=== PATIENT | male | born 1935 | race Two or more races ===

== ENCOUNTER 2016-04-02 02:25 | Inpatient (IN) | payer MEDICARE, OTHER ==
[~2016-04-02] VITALS: Ht 175.3 cm; Wt 78.0 kg
[2016-04-02] MEDS ORDERED: ONDANSETRON HCL/PF 4 MG/2 ML VIAL IVP PRN (05:00)
[2016-04-02] MEDS ORDERED: ONDANSETRON HCL/PF 4 MG/2 ML VIAL ONE (05:49)
[2016-04-02 06:10] VITALS: BP 190/84
[2016-04-02 08:00] VITALS: BP 178/84
[2016-04-02 08:25] LABS: DIFF TOTAL % 100 %; EOSINOPHILS % (AUTO) 0.1 % (0.0-6.0); HEMATOCRIT 30 % (39-51); HEMOGLOBIN 9.7 g/dL (13.5-17.5); LYMPHOCYTES # (AUTO) 0.5 /CMM (0.8-4.8); LYMPHOCYTES % (AUTO) 4.4 % (20.0-44.0); MEAN CORPUSCULAR HEMOGLOBIN 27 PG (26.0-33.0); MEAN CORPUSCULAR HGB CONC 32 g/dl (31.0-36.0); MEAN CORPUSCULAR VOLUME 84 fL (80-96); MONOCYTES # (AUTO) 0.8 /CMM (0.1-1.30); NEUTROPHILS # (AUTO) 9.8 /CMM (1.8-8.9); NEUTROPHILS % (AUTO) 88.5 % (43.0-81.0); PLATELET COUNT (AUTO) 197 /CMM (150-450); RED BLOOD CELL COUNT(AUTO) 3.63 MIL/uL (4.5-6.0); WHITE BLOOD COUNT (AUTO) 11.1 K/uL (4.3-11.0)
[2016-04-02] MEDS ORDERED: HYDRALAZINE HCL PO (08:43)
[2016-04-02] MEDS ORDERED: IBUP-23 PO (08:43)
[2016-04-02] MEDS ORDERED: ASPI81TA2 PO (08:43)
[2016-04-02] MEDS ORDERED: DILT120T14 PO (08:43)
[2016-04-02] MEDS: ASPIRIN 81 MG TAB.CHEW PO SCH (08:48)
[2016-04-02] MEDS: hydrALAZINE HCL 50 MG TABLET PO SCH ×3 (08:48→16:45)
[2016-04-02] MEDS: PANTOPRAZOLE 40 MG TABLET.DR PO SCH (08:48)
[2016-04-02] MEDS: ATORVASTATIN 10 MG TABLET PO SCH (08:48)
[2016-04-02 08:56] LABS: POTASSIUM 5.5 mmol/L (3.5-5.1)
[2016-04-02 08:58] LABS: BILIRUBIN,TOTAL 0.4 mg/dL (0.2-1.0); PHOSPHORUS 5.3 mg/dL (2.5-4.9)
[2016-04-02 08:59] LABS: ALBUMIN 3.6 g/dL (3.4-5.0); TOTAL PROTEIN, SERUM 0.4 g/dL (6.4-8.2)
[2016-04-02 09:03] LABS: CALCIUM, SERUM 8.8 mg/dL (8.5-10.1)
[2016-04-02] MEDS: NITROGLYCERIN 30 GM TUBE TP SCH ×2 (10:14→20:47)
[2016-04-02 11:30] LABS: KETONES,URINE NEGATIVE (NEGATIVE); LEUKOCYTE ESTERASE ,URINE 1+ (NEGATIVE); PH,URINE 5.5 (5.0-8.0)
[2016-04-02 11:33] LABS: ADD UA MICROSCOPIC YES
[2016-04-02 11:49] LABS: RBC,URINE 51-80 /HPF (0-2)
[2016-04-02 11:50] LABS: ADD URINE CULTURE YES; WBC,URINE 21-50 /HPF (0-3)
[2016-04-02 11:51] LABS: MUCUS,URINE Few /LPF (None Seen)
[2016-04-02 12:00] VITALS: BP 158/69
[2016-04-02] MEDS: HEPARIN SODIUM, PORCINE 5000 UNITS/1 ML VIAL SQ SCH ×2 (12:00→21:27)
[2016-04-02 14:39] LABS: CREATININE, URINE 58.6 MG/DL (30.0-125.0); URINE TOTAL PROTEIN 271.2 mg/dL (0-11.9)
[2016-04-02 16:00] VITALS: BP 145/73
[2016-04-02] MEDS ORDERED: SODIUM POLYSTYRENE SULFONATE 15 G/60 ML BOTTLE PO ONE (18:00)
[2016-04-02] MEDS ORDERED: FUROSEMIDE 40 MG/4 ML VIAL IV SCH (18:00)
[2016-04-02 20:00] VITALS: BP 158/73
[2016-04-02] MEDS ORDERED: SECONDARY IV SET 1 EA INFUS.SET MC ONE (20:33)
[2016-04-02] MEDS ORDERED: IV SET PRIMARY PUMP SET 1 EA INFUS.SET MC ONE (20:33)
[2016-04-02] MEDS ORDERED: IV NS 0.9% 250 ML IV ONE (20:33)
[2016-04-02] MEDS: CEFTRIAXONE 1 G in IV D5W 50 ML IV SCH (20:37)
[2016-04-03] VITALS (7 sets, daily range): BP systolic 128–173; BP diastolic 60–91
[2016-04-03 07:22] LABS: BASOPHILS % (AUTO) 0.6 % (0.0-2.0); DIFF TOTAL % 100 %; EOSINOPHILS % (AUTO) 0.2 % (0.0-6.0); HEMATOCRIT 28 % (39-51); HEMOGLOBIN 9.1 g/dL (13.5-17.5); LYMPHOCYTES # (AUTO) 0.9 /CMM (0.8-4.8); LYMPHOCYTES % (AUTO) 11.1 % (20.0-44.0); MEAN CORPUSCULAR HEMOGLOBIN 28 PG (26.0-33.0); MEAN CORPUSCULAR HGB CONC 33 g/dl (31.0-36.0); MEAN CORPUSCULAR VOLUME 84 fL (80-96); MONOCYTES # (AUTO) 0.8 /CMM (0.1-1.30); MONOCYTES % (AUTO) 10.1 % (2.0-12.0); NEUTROPHILS # (AUTO) 6.3 /CMM (1.8-8.9); PLATELET COUNT (AUTO) 200 /CMM (150-450); RED BLOOD CELL COUNT(AUTO) 3.32 MIL/uL (4.5-6.0)
[2016-04-03 07:45] LABS: KETONES,URINE NEGATIVE (NEGATIVE); LEUKOCYTE ESTERASE ,URINE 2+ (NEGATIVE); PH,URINE 5.5 (5.0-8.0)
[2016-04-03 07:47] LABS: ADD UA MICROSCOPIC YES
[2016-04-03 07:51] LABS: THYROID STIMULATING HORMONE 1.805 uIU/mL (0.358-3.74)
[2016-04-03 07:55] LABS: ALBUMIN 3.1 g/dL (3.4-5.0); BILIRUBIN,TOTAL 0.4 mg/dL (0.2-1.0); CALCIUM, SERUM 8.5 mg/dL (8.5-10.1); CREATININE 6.4 mg/dL (0.6-1.3); PHOSPHORUS 5.3 mg/dL (2.5-4.9); POTASSIUM 5.5 mmol/L (3.5-5.1); TOTAL PROTEIN, SERUM 6.7 g/dL (6.4-8.2)
[2016-04-03 07:57] LABS: ADD URINE CULTURE YES; MUCUS,URINE Few /LPF (None Seen); RBC,URINE 81-100 /HPF (0-2)
[2016-04-03 07:58] LABS: COARSE GRANULAR CASTS,URINE Rare /LPF (None Seen)
[2016-04-03 08:04] LABS: CREATININE, URINE 35.9 MG/DL (30.0-125.0); URINE TOTAL PROTEIN 136.2 mg/dL (0-11.9)
[2016-04-03] MEDS: PANTOPRAZOLE 40 MG TABLET.DR PO SCH (08:43)
[2016-04-03] MEDS: DILTIAZEM HCL 30 MG TABLET PO SCH (08:43)
[2016-04-03] MEDS: ASPIRIN 81 MG TAB.CHEW PO SCH (08:44)
[2016-04-03] MEDS: HEPARIN SODIUM, PORCINE 5000 UNITS/1 ML VIAL SQ SCH ×2 (08:45→21:00)
[2016-04-03] MEDS: hydrALAZINE HCL 50 MG TABLET PO SCH ×3 (08:46→16:50)
[2016-04-03] MEDS: ATORVASTATIN 10 MG TABLET PO SCH (08:46)
[2016-04-03] MEDS ORDERED: ASPIRIN 81 MG TAB.CHEW PO SCH (09:00)
[2016-04-03] MEDS: NITROGLYCERIN 30 GM TUBE TP SCH ×2 (09:39→21:24)
[2016-04-03 09:42] LABS: IRON, SERUM 26 ug/dl (50-175); PERCENT SATURATION 10 % (14-33); TOTAL IRON BINDING CAPACITY 273 ug/dl (250-450)
[2016-04-03] MEDS ORDERED: SODIUM POLYSTYRENE SULFONATE 15 G/60 ML BOTTLE PO ONE (16:00)
[2016-04-03] MEDS: ACETAMINOPHEN 325 MG TABLET PO PRN (16:50)
[2016-04-03 19:38] LABS: INR 1.26 (0.87-1.13); PROTHROMBIN TIME 13.6 SECS (9.5-12.7)
[2016-04-03] MEDS: CEFTRIAXONE 1 G in IV D5W 50 ML IV SCH (20:14)
[2016-04-04 06:34] LABS: BASOPHILS % (AUTO) 0.3 % (0.0-2.0); DIFF TOTAL % 100 %; EOSINOPHILS % (AUTO) 0.3 % (0.0-6.0); HEMATOCRIT 27 % (39-51); HEMOGLOBIN 8.7 g/dL (13.5-17.5); LYMPHOCYTES # (AUTO) 0.8 /CMM (0.8-4.8); LYMPHOCYTES % (AUTO) 10.2 % (20.0-44.0); MEAN CORPUSCULAR HEMOGLOBIN 27 PG (26.0-33.0); MEAN CORPUSCULAR HGB CONC 33 g/dl (31.0-36.0); MEAN CORPUSCULAR VOLUME 83 fL (80-96); MONOCYTES % (AUTO) 12.7 % (2.0-12.0); NEUTROPHILS # (AUTO) 6.1 /CMM (1.8-8.9); NEUTROPHILS % (AUTO) 76.5 % (43.0-81.0); PLATELET COUNT (AUTO) 184 /CMM (150-450); RED BLOOD CELL COUNT(AUTO) 3.21 MIL/uL (4.5-6.0)
[2016-04-04 06:50] LABS: INR 1.3 (0.87-1.13); PROTHROMBIN TIME 14.1 SECS (9.5-12.7)
[2016-04-04 07:02] LABS: CALCIUM, SERUM 8.4 mg/dL (8.5-10.1); CREATININE 6.8 mg/dL (0.6-1.3); POTASSIUM 4.8 mmol/L (3.5-5.1)
[2016-04-04 08:00] VITALS: BP 162/82
[2016-04-04 08:17] LABS: VIT D, 25-HYDROXY 19.3 ng/mL (30.0-100.0)
[2016-04-04] MEDS: ATORVASTATIN 10 MG TABLET PO SCH (08:57)
[2016-04-04] MEDS: HEPARIN SODIUM, PORCINE 5000 UNITS/1 ML VIAL SQ SCH ×2 (08:58→22:52)
[2016-04-04] MEDS: PANTOPRAZOLE 40 MG TABLET.DR PO SCH (08:58)
[2016-04-04] MEDS: ASPIRIN 81 MG TAB.CHEW PO SCH (08:59)
[2016-04-04] MEDS: DILTIAZEM HCL 30 MG TABLET PO SCH (09:24)
[2016-04-04] MEDS: hydrALAZINE HCL 50 MG TABLET PO SCH ×3 (09:25→16:39)
[2016-04-04] MEDS: NITROGLYCERIN 30 GM TUBE TP SCH ×2 (09:26→22:50)
[2016-04-04 10:39] LABS: *SPE ALBUMIN 3.2 g/dL (2.9-4.4)
[2016-04-04 13:17] LABS: PTH, INTACT 193 pg/mL (15-65)
[2016-04-04] MEDS ORDERED: HEPARIN SODIUM, PORCINE 1,000 UNIT/ML VIAL ONE (14:28)
[2016-04-04] MEDS ORDERED: LIDOCAINE HCL/PF 1% 30 ML SDV ONE (14:28)
[2016-04-04] MEDS ORDERED: ANESTHESIA TRAY IN PYXIS 1 EA TRAY MC ONE (15:59)
[2016-04-04 16:00] VITALS: BP 152/78
[2016-04-04] MEDS ORDERED: SECONDARY IV SET 1 EA INFUS.SET MC ONE (16:26)
[2016-04-04 16:30] VITALS: BP 150/56
[2016-04-04] MEDS: SOD FERRIC GLUC 125 MG in IV NS 0.9% 100 ML IV SCH ×2 (16:30→16:38)
[2016-04-04 20:00] VITALS: BP 156/72
[2016-04-04 22:00] VITALS: BP 156/72
[2016-04-04] MEDS: CEFTRIAXONE 1 G in IV D5W 50 ML IV SCH (22:31)
[2016-04-04] MEDS ORDERED: IV SET PRIMARY PUMP SET 1 EA INFUS.SET MC ONE (22:33)
[2016-04-05 08:00] VITALS: BP 155/90
[2016-04-05] MEDS: hydrALAZINE HCL 50 MG TABLET PO SCH ×4 (09:00→18:23)
[2016-04-05 09:34] LABS: BASOPHILS % (AUTO) 0.2 % (0.0-2.0); DIFF TOTAL % 100 %; EOSINOPHILS % (AUTO) 0.1 % (0.0-6.0); HEMATOCRIT 27 % (39-51); HEMOGLOBIN 8.7 g/dL (13.5-17.5); LYMPHOCYTES # (AUTO) 0.4 /CMM (0.8-4.8); LYMPHOCYTES % (AUTO) 4.3 % (20.0-44.0); MEAN CORPUSCULAR HEMOGLOBIN 27 PG (26.0-33.0); MEAN CORPUSCULAR HGB CONC 32 g/dl (31.0-36.0); MEAN CORPUSCULAR VOLUME 83 fL (80-96); MONOCYTES # (AUTO) 1.1 /CMM (0.1-1.30); MONOCYTES % (AUTO) 11.2 % (2.0-12.0); NEUTROPHILS # (AUTO) 8.6 /CMM (1.8-8.9); NEUTROPHILS % (AUTO) 84.2 % (43.0-81.0); PLATELET COUNT (AUTO) 188 /CMM (150-450); RED BLOOD CELL COUNT(AUTO) 3.24 MIL/uL (4.5-6.0); WHITE BLOOD COUNT (AUTO) 10.2 K/uL (4.3-11.0)
[2016-04-05 09:41] LABS: ALBUMIN 2.9 g/dL (3.4-5.0); BILIRUBIN,TOTAL 0.4 mg/dL (0.2-1.0); CREATININE 5.7 mg/dL (0.6-1.3); PHOSPHORUS 4.7 mg/dL (2.5-4.9); POTASSIUM 4.4 mmol/L (3.5-5.1); TOTAL PROTEIN, SERUM 6.6 g/dL (6.4-8.2)
[2016-04-05] MEDS: ASPIRIN 81 MG TAB.CHEW PO SCH (09:55)
[2016-04-05] MEDS: ATORVASTATIN 10 MG TABLET PO SCH (09:55)
[2016-04-05] MEDS: PANTOPRAZOLE 40 MG TABLET.DR PO SCH (09:55)
[2016-04-05] MEDS: NITROGLYCERIN 30 GM TUBE TP SCH ×3 (10:00→21:00)
[2016-04-05] MEDS: HEPARIN SODIUM, PORCINE 5000 UNITS/1 ML VIAL SQ SCH ×2 (10:01→20:53)
[2016-04-05] MEDS: ACETAMINOPHEN 325 MG TABLET PO PRN (10:30)
[2016-04-05 16:00] VITALS: BP 152/69
[2016-04-05] MEDS: VIT B CMPLX 3/FA/VIT C/BIOTIN 1 TAB TABLET PO SCH (17:05)
[2016-04-05] MEDS: DILTIAZEM HCL 30 MG TABLET PO SCH (17:06)
[2016-04-05] MEDS: SOD FERRIC GLUC 125 MG in IV NS 0.9% 100 ML IV SCH (17:15)
[2016-04-05] MEDS ORDERED: SECONDARY IV SET 1 EA INFUS.SET MC ONE ×2 (17:16→20:24)
[2016-04-05 20:00] VITALS: BP 125/60
[2016-04-05] MEDS: CEFTRIAXONE 1 G in IV D5W 50 ML IV SCH (20:28)
[2016-04-05 21:42] VITALS: BP 125/60
[2016-04-06 06:47] LABS: BASOPHILS % (AUTO) 0.5 % (0.0-2.0); DIFF TOTAL % 100 %; EOSINOPHILS # (AUTO) 0.1 /CMM (0.0-0.7); EOSINOPHILS % (AUTO) 0.8 % (0.0-6.0); HEMATOCRIT 24 % (39-51); HEMOGLOBIN 7.9 g/dL (13.5-17.5); LYMPHOCYTES # (AUTO) 0.7 /CMM (0.8-4.8); LYMPHOCYTES % (AUTO) 9.7 % (20.0-44.0); MEAN CORPUSCULAR HEMOGLOBIN 27 PG (26.0-33.0); MEAN CORPUSCULAR HGB CONC 33 g/dl (31.0-36.0); MEAN CORPUSCULAR VOLUME 82 fL (80-96); MONOCYTES % (AUTO) 13.9 % (2.0-12.0); NEUTROPHILS # (AUTO) 5.5 /CMM (1.8-8.9); NEUTROPHILS % (AUTO) 75.1 % (43.0-81.0); PLATELET COUNT (AUTO) 161 /CMM (150-450); RED BLOOD CELL COUNT(AUTO) 2.92 MIL/uL (4.5-6.0); WHITE BLOOD COUNT (AUTO) 7.3 K/uL (4.3-11.0)
[2016-04-06 07:03] LABS: CALCIUM, SERUM 7.9 mg/dL (8.5-10.1); CREATININE 4.1 mg/dL (0.6-1.3); PHOSPHORUS 3.8 mg/dL (2.5-4.9)
[2016-04-06 08:00] VITALS: BP 150/65
[2016-04-06] MEDS: ASPIRIN 81 MG TAB.CHEW PO SCH (09:35)
[2016-04-06] MEDS: ATORVASTATIN 10 MG TABLET PO SCH (09:35)
[2016-04-06] MEDS: hydrALAZINE HCL 50 MG TABLET PO SCH ×3 (09:35→17:00)
[2016-04-06] MEDS: VIT B CMPLX 3/FA/VIT C/BIOTIN 1 TAB TABLET PO SCH (09:35)
[2016-04-06] MEDS: PANTOPRAZOLE 40 MG TABLET.DR PO SCH (09:35)
[2016-04-06] MEDS: DILTIAZEM HCL 30 MG TABLET PO SCH (09:36)
[2016-04-06] MEDS: NITROGLYCERIN 30 GM TUBE TP SCH ×2 (09:39→20:25)
[2016-04-06] MEDS: HEPARIN SODIUM, PORCINE 5000 UNITS/1 ML VIAL SQ SCH ×2 (09:46→20:25)
[2016-04-06] MEDS ORDERED: Magnesium 1GM/D5W 100ML PREMIX 100 ML IV SCH (11:00)
[2016-04-06] MEDS ORDERED: SECONDARY IV SET 1 EA INFUS.SET MC ONE ×2 (11:10→14:48)
[2016-04-06] MEDS: SOD FERRIC GLUC 125 MG in IV NS 0.9% 100 ML IV SCH (14:52)
[2016-04-06 17:00] VITALS: BP 134/71
[2016-04-06 20:00] VITALS: BP 154/76
[2016-04-06] MEDS: CEFTRIAXONE 1 G in IV D5W 50 ML IV SCH (20:25)
[2016-04-07 07:17] LABS: BASOPHILS # (AUTO) 0.1 /CMM (0.0-0.2); BASOPHILS % (AUTO) 0.8 % (0.0-2.0); DIFF TOTAL % 100 %; EOSINOPHILS % (AUTO) 0.4 % (0.0-6.0); HEMATOCRIT 25 % (39-51); HEMOGLOBIN 8.1 g/dL (13.5-17.5); LYMPHOCYTES # (AUTO) 0.7 /CMM (0.8-4.8); LYMPHOCYTES % (AUTO) 10.3 % (20.0-44.0); MEAN CORPUSCULAR HEMOGLOBIN 27 PG (26.0-33.0); MEAN CORPUSCULAR HGB CONC 33 g/dl (31.0-36.0); MEAN CORPUSCULAR VOLUME 83 fL (80-96); MONOCYTES # (AUTO) 0.9 /CMM (0.1-1.30); MONOCYTES % (AUTO) 12.9 % (2.0-12.0); NEUTROPHILS # (AUTO) 5.5 /CMM (1.8-8.9); NEUTROPHILS % (AUTO) 75.6 % (43.0-81.0); PLATELET COUNT (AUTO) 167 /CMM (150-450); RED BLOOD CELL COUNT(AUTO) 2.99 MIL/uL (4.5-6.0); WHITE BLOOD COUNT (AUTO) 7.3 K/uL (4.3-11.0)
[2016-04-07 07:22] LABS: CALCIUM, SERUM 8.1 mg/dL (8.5-10.1); CREATININE 4.7 mg/dL (0.6-1.3); PHOSPHORUS 4.7 mg/dL (2.5-4.9); POTASSIUM 3.9 mmol/L (3.5-5.1)
[2016-04-07 08:00] VITALS: BP 147/72
[2016-04-07] MEDS: DILTIAZEM HCL 30 MG TABLET PO SCH (08:51)
[2016-04-07] MEDS: PANTOPRAZOLE 40 MG TABLET.DR PO SCH (08:52)
[2016-04-07] MEDS: VIT B CMPLX 3/FA/VIT C/BIOTIN 1 TAB TABLET PO SCH (08:52)
[2016-04-07] MEDS: hydrALAZINE HCL 50 MG TABLET PO SCH ×3 (08:52→17:00)
[2016-04-07] MEDS: ATORVASTATIN 10 MG TABLET PO SCH (08:52)
[2016-04-07] MEDS: ASPIRIN 81 MG TAB.CHEW PO SCH (08:52)
[2016-04-07] MEDS: NITROGLYCERIN 30 GM TUBE TP SCH ×2 (08:53→20:37)
[2016-04-07] MEDS: HEPARIN SODIUM, PORCINE 5000 UNITS/1 ML VIAL SQ SCH ×2 (09:00→20:37)
[2016-04-07] MEDS ORDERED: EPOETIN ALFA (10,000 UNIT) 10,000 UNIT/ML VIAL SQ ONE (10:30)
[2016-04-07] MEDS: SOD FERRIC GLUC 125 MG in IV NS 0.9% 100 ML IV SCH (15:40)
[2016-04-07 16:00] VITALS: BP 116/62
[2016-04-07 20:00] VITALS: BP 130/69
[2016-04-07] MEDS: CEFTRIAXONE 1 G in IV D5W 50 ML IV SCH (20:24)
[2016-04-08 05:12] LABS: HEPATITIS C VIRUS AB <0.1 s/co ratio (0.0-0.9)
[2016-04-08 08:00] VITALS: BP 145/61
[2016-04-08] MEDS: ATORVASTATIN 10 MG TABLET PO SCH (08:31)
[2016-04-08] MEDS: hydrALAZINE HCL 50 MG TABLET PO SCH ×3 (08:32→16:38)
[2016-04-08] MEDS: PANTOPRAZOLE 40 MG TABLET.DR PO SCH (08:32)
[2016-04-08] MEDS: ASPIRIN 81 MG TAB.CHEW PO SCH (08:33)
[2016-04-08] MEDS: DILTIAZEM HCL 30 MG TABLET PO SCH (08:33)
[2016-04-08] MEDS: VIT B CMPLX 3/FA/VIT C/BIOTIN 1 TAB TABLET PO SCH (08:33)
[2016-04-08] MEDS: HEPARIN SODIUM, PORCINE 5000 UNITS/1 ML VIAL SQ SCH ×2 (08:36→20:24)
[2016-04-08] MEDS: NITROGLYCERIN 30 GM TUBE TP SCH ×2 (08:36→20:24)
[2016-04-08] MEDS ORDERED: Hydralazine Hcl PO (10:54)
[2016-04-08] MEDS ORDERED: FERR-58 PO (10:54)
[2016-04-08] MEDS ORDERED: VIT1TABL44 PO (10:54)
[2016-04-08] MEDS: SOD FERRIC GLUC 125 MG in IV NS 0.9% 100 ML IV SCH (13:31)
[2016-04-08 16:00] VITALS: BP 148/69
[2016-04-08 19:55] VITALS: BP 166/70
[2016-04-08] MEDS: CEFTRIAXONE 1 G in IV D5W 50 ML IV SCH (20:21)
[2016-04-08 22:00] VITALS: BP 166/70
[2016-04-09 08:00] VITALS: BP 185/89
[2016-04-09] MEDS: NITROGLYCERIN 30 GM TUBE TP SCH ×2 (09:00→20:08)
[2016-04-09] MEDS: VIT B CMPLX 3/FA/VIT C/BIOTIN 1 TAB TABLET PO SCH (09:00)
[2016-04-09] MEDS: DILTIAZEM HCL 30 MG TABLET PO SCH (09:00)
[2016-04-09] MEDS: PANTOPRAZOLE 40 MG TABLET.DR PO SCH (09:00)
[2016-04-09] MEDS: ATORVASTATIN 10 MG TABLET PO SCH (09:00)
[2016-04-09] MEDS: ASPIRIN 81 MG TAB.CHEW PO SCH (09:00)
[2016-04-09] MEDS: HEPARIN SODIUM, PORCINE 5000 UNITS/1 ML VIAL SQ SCH (09:00)
[2016-04-09] MEDS: hydrALAZINE HCL 50 MG TABLET PO SCH ×3 (09:00→17:19)
[2016-04-09 12:57] LABS: CALCIUM, SERUM 8.7 mg/dL (8.5-10.1); CREATININE 4.7 mg/dL (0.6-1.3)
[2016-04-09 13:48] LABS: BASOPHILS % (AUTO) 0.4 % (0.0-2.0); DIFF TOTAL % 100 %; EOSINOPHILS # (AUTO) 0.2 /CMM (0.0-0.7); HEMATOCRIT 29 % (39-51); HEMOGLOBIN 9.4 g/dL (13.5-17.5); LYMPHOCYTES # (AUTO) 0.9 /CMM (0.8-4.8); LYMPHOCYTES % (AUTO) 9.9 % (20.0-44.0); MEAN CORPUSCULAR HEMOGLOBIN 27 PG (26.0-33.0); MEAN CORPUSCULAR HGB CONC 33 g/dl (31.0-36.0); MEAN CORPUSCULAR VOLUME 82 fL (80-96); MONOCYTES # (AUTO) 1.2 /CMM (0.1-1.30); MONOCYTES % (AUTO) 13.4 % (2.0-12.0); NEUTROPHILS # (AUTO) 6.7 /CMM (1.8-8.9); NEUTROPHILS % (AUTO) 74.3 % (43.0-81.0); PLATELET COUNT (AUTO) 244 /CMM (150-450); RED BLOOD CELL COUNT(AUTO) 3.47 MIL/uL (4.5-6.0)
[2016-04-09] MEDS ORDERED: EPOETIN ALFA (10,000 UNIT) 10,000 UNIT/ML VIAL IV ONE (14:30)
[2016-04-09 16:00] VITALS: BP 190/96
[2016-04-09] MEDS: CEFTRIAXONE 1 G in IV D5W 50 ML IV SCH (19:55)
[2016-04-09 20:00] VITALS: BP 166/86
[2016-04-10 08:00] VITALS: BP 169/76
[2016-04-10] MEDS: ASPIRIN 81 MG TAB.CHEW PO SCH (09:35)
[2016-04-10] MEDS: DILTIAZEM HCL 30 MG TABLET PO SCH (09:36)
[2016-04-10] MEDS: ATORVASTATIN 10 MG TABLET PO SCH (09:37)
[2016-04-10] MEDS: VIT B CMPLX 3/FA/VIT C/BIOTIN 1 TAB TABLET PO SCH (09:37)
[2016-04-10] MEDS: PANTOPRAZOLE 40 MG TABLET.DR PO SCH (09:37)
[2016-04-10] MEDS: hydrALAZINE HCL 50 MG TABLET PO SCH ×2 (09:37→13:59)
[2016-04-10] MEDS: NITROGLYCERIN 30 GM TUBE TP SCH (09:47)
[2016-04-10] MEDS ORDERED: HYDROCODONE/APAP 5/325MG 1 EACH TABLET PO PRN (13:00)
[2016-04-10 13:59] VITALS: BP 122/61
[2016-04-10] MEDS ORDERED: GABA300C PO (15:50)
== END 2016-04-10 17:30 | disposition home or self-care (01) | DRG 280 ==
LOC: TELE 05:34 → MED 04-03 10:53
PROVIDERS: ADMIT Nurse Practitioner Acute Care; ATTEND Internal Medicine
PROC: B513YZA Fluoroscopy of Right Jugular Veins using Other Contrast, Guidance (ICD-10-PCS; 2016-04-04)
PROC: 05HM33Z Insertion of Infusion Device into Right Internal Jugular Vein, Percutaneous Approach (ICD-10-PCS; principal; 2016-04-04 15:14)
PROC: 5A1D60Z (ICD-10-PCS; 2016-04-07)
DX: I13.2 Hypertensive heart and chronic kidney disease with heart failure and with stage 5 chronic kidney disease, or end stage renal disease (principal); N18.6 End stage renal disease; I21.4 Non-ST elevation (NSTEMI) myocardial infarction; N17.0 Acute kidney failure with tubular necrosis; I50.23 Acute on chronic systolic (congestive) heart failure; N39.0 Urinary tract infection, site not specified; E87.5 Hyperkalemia; E87.70 Fluid overload, unspecified; I25.10 Atherosclerotic heart disease of native coronary artery without angina pectoris; Z95.1 Presence of aortocoronary bypass graft; Z99.2 Dependence on renal dialysis; D64.9 Anemia, unspecified
CPT/HCPCS: 36415; 71010-TC; 76770-TC; 80048-TC; 80053-TC; 80061-TC; 81000-TC; 82306; 82550-TC; 82570-TC; 82652; 82728-TC; 82962-TC; 83540-TC; 83735-TC; 83970; 84100-TC; 84155; 84155-TC; 84165; 84300-TC; 84443-TC; 84484-TC; 85025-TC; 85610-TC; 86704; 86705; 86706; 86803; 86850-TC; 87081-TC; 87086-TC; 87340; 90935-TC; 93307-TC; A6402; C1750; J0696; J0885; J1644; J1940; J2405; J2916; J3475; J3490; J7030; J7050; J7060; Z7610